=== PATIENT | male | born 1995 | race Asian ===

== ENCOUNTER 2025-01-01 16:05 | Emergency (ER) | payer SELFPAY ==
[~2025-01-01] VITALS: Ht 177.8 cm; Wt 78.6 kg
[2025-01-01 16:52] LABS: ANION GAP 9 mmol/L (8-16); CALCIUM, TOTAL 8.5 mg/dL (8.8-10.5); CARBON DIOXIDE 28 mmol/L (22-29); CHLORIDE 100 mmol/L (98-107); CREATININE 1.07 mg/dL (0.60-1.30); GLOMERULAR FILTR. RATE CALC > 60 mL/min (>60); GLUCOSE,RANDOM 100 mg/dL (70-110); POTASSIUM 4.1 mmol/L (3.5-5.1); SODIUM SERUM 137 mmol/L (136-145); UREA NITROGEN, BLOOD 9 mg/dL (7-18)
[2025-01-01 16:56] LABS: ALANINE AMINOTRANSFERASE 32 U/L (12-78); ALBUMIN 3.3 g/dL (3.4-5.0); ALKALINE PHOSPHATASE 90 U/L (46-116); ASPARTATE AMINOTRANSFERASE 22 U/L (15-37); BILIRUBIN,TOTAL 0.8 mg/dL (0.1-1.0); LIPASE 56 U/L (16-77); TOTAL PROTEIN, SERUM 8.1 g/dL (6.4-8.2)
[2025-01-01 16:58] LABS: BASOPHILS % (AUTO) 0.3 % (0.0-2.0); EOSINOPHILS % (AUTO) 1.6 % (1.0-6.0); HEMATOCRIT 42.3 % (41-53); LYMPHOCYTES # (AUTO) 1.9 K/uL (1.0-4.8); LYMPHOCYTES % (AUTO) 25.9 % (22.0-44.0); MEAN CORPUSCULAR VOLUME 91 fL (80-100); MONOCYTES # (AUTO) 0.7 K/uL (0.1-1.0); MONOCYTES % (AUTO) 9.1 % (2.0-9.0); NEUTROPHILS # (AUTO) 4.6 K/uL (1.8-7.7); NEUTROPHILS % (AUTO) 63.1 % (40.0-70.0); PLATELET COUNT (AUTO) 218 K/uL (150-450); RED BLOOD CELL COUNT(AUTO) 4.66 MIL/uL (4.50-5.90); RED CELL DISTRIBUTION WIDTH 13.4 % (11.5-14.5); WHITE BLOOD COUNT (AUTO) 7.3 K/uL (4.5-11.0)
[2025-01-01] MEDS: ACETAMINOPHEN 500 MG TABLET PO ONE (17:20)
[2025-01-01] MEDS: KETOROLAC TROMETHAMINE 30 MG/ML VIAL IVP ONE (17:21)
[2025-01-01 18:09] LABS: INFLUENZA TYPE A NEGATIVE FOR TYPE A (NEGATIVE); INFLUENZA TYPE B NEGATIVE FOR TYPE B (NEGATIVE)
[2025-01-01] MEDS ORDERED: IOHEXOL 350 MG/ML 100 ML VIAL ONE (19:00)
[2025-01-01] MEDS ORDERED: VANCOMYCIN 1.25 GM/WATER(PEG) 250 ML IV ONE (20:00)
[2025-01-01] MEDS ORDERED: CLINDAMYCIN 600 MG/D5% WATER 50 ML IV ONE (20:00)
[2025-01-01] MEDS ORDERED: CLIN-26 PO (20:01)
[2025-01-01 21:00] VITALS: BP 121/68; PULSE 89; RESP 18; TEMP 98.3; O2SAT 99
== END 2025-01-01 22:13 | disposition left against medical advice (07) ==
LOC: EMS 16:05
DX: R59.0 Localized enlarged lymph nodes (principal); R05.9 Cough, unspecified
CPT/HCPCS: 99285; 70491; 96374; 71045; 80048; 80076; 83690; 85025; 87804; 36415; 74177; J1885; Q9967; J3490